=== PATIENT | male | born 1960 | race Caucasian/White ===

== ENCOUNTER 2024-12-28 05:25 | Observation (INO) | payer MEDICARE ==
[~2024-12-28] VITALS: Ht 177.8 cm; Wt 88.9 kg
[2024-12-28] VITALS (13 sets, daily range): BP systolic 94–151; BP diastolic 51–100
[2024-12-28 05:51] LABS: BASOPHILS ABSOLUTE AUTO 0.05 K/mm3 (0.00-0.23); BASOPHILS PERCENT AUTO 0 % (0-2); EOSINOPHILS ABSOLUTE AUTO 0.05 K/mm3 (0.00-0.68); EOSINOPHILS PERCENT AUTO 0 % (0-6); Hematocrit 50.1 % (37.0-53.0); Hemoglobin 16.7 g/dL (13.5-17.5); IMMATURE GRAN ABSOLUTE AUTO 0.03 K/mm3 (0.00-0.10); IMMATURE GRAN PERCENT AUTO 0 % (0-1); LYMPHOCYTES ABSOLUTE AUTO 1.28 K/mm3 (0.84-5.20); LYMPHOCYTES PERCENT AUTO 11 % (21-46); MONOCYTES ABSOLUTE AUTO 1.15 K/mm3 (0.16-1.47); MONOCYTES PERCENT AUTO 10 % (4-13); Mean Corpuscular HGB Conc 33.3 g/dL (31.5-36.5); Mean Corpuscular Volume 87 fL (80-100); NEUTROPHILS ABSOLUTE AUTO 9.53 K/mm3 (1.96-9.15); NEUTROPHILS PERCENT AUTO 79 % (41-73); Platelet Count 158 K/mm3 (150-400); RDW Coefficient Variation 13.6 % (11.7-14.2); RDW Standard Deviation 43.2 fL (35.1-46.3); Red Blood Cell Count 5.75 M/mm3 (4.30-5.90); White Blood Cell Count 12.09 K/mm3 (4.00-11.30)
[2024-12-28 06:16] LABS: Albumin, Blood 4.3 g/dL (3.4-5.0); Albumin/Globulin Ratio 1.3 (0.8-1.8); Bilirubin, Total 0.7 mg/dL (0.1-1.0); Bun/Creatinine Ratio 20.8 (12.0-20.0); Creatinine, Blood 1.06 mg/dL (0.60-1.20); Globulin, Blood 3.4 g/dL (2.2-4.0); Potassium, Blood 4.2 mmol/L (3.5-5.5); Total Protein, Blood 7.7 g/dL (6.4-8.2)
[2024-12-28] MEDS ORDERED: Lidocaine 2% Viscous Soln 15 ML UDC PO ONE (06:35)
[2024-12-28] MEDS ORDERED: Mag Hydrox/AL Hydrox/Simeth 30 ML UDC PO ONE (06:35)
[2024-12-28] MEDS ORDERED: Pantoprazole Sodium 40 MG Injection IV ONE (06:35)
[2024-12-28] MEDS ORDERED: Aspirin 81 MG Chew PO ONE (06:45)
[2024-12-28] MEDS ORDERED: Nitroglycerin 0.4 MG SUBL SL ONE ×2 (06:45→07:15)
[2024-12-28] MEDS ORDERED: Acetaminophen 500 MG Tab PO ONE (07:15)
[2024-12-28] MEDS ORDERED: MONT10T PO (07:34)
[2024-12-28] MEDS ORDERED: PEPCID40 MG PO (07:35)
[2024-12-28] MEDS ORDERED: TADALAFIL20 M1 PO (07:36)
[2024-12-28] MEDS ORDERED: ZYRTEC10 M2 PO (07:36)
[2024-12-28] MEDS ORDERED: MINO10 PO (07:36)
[2024-12-28 08:14] LABS: Anti-Xa UFH, PHA Monitoring <0.10 IU/mL; International Normalized Ratio 0.96; Prothrombin Time Results 10.3 Sec (9.7-11.5)
[2024-12-28] MEDS ORDERED: Heparin Sodium 5000 Units/ML 1ML MDV IV ONE (08:35)
[2024-12-28] MEDS ORDERED: Heparin Sodium,Porcine/0.5 NS 500 ML IV SCH (08:35)
[2024-12-28] MEDS ORDERED: FLU VACC TS2024-25(6MOS UP)/PF 45 MCG/0.5 ML SYRINGE IM SCH (09:25)
[2024-12-28] MEDS ORDERED: Nitroglycerin 0.4 MG SUBL SL PRN (09:35)
[2024-12-28] MEDS ORDERED: Clopidogrel Bisulfate 300 MG Cap PO ONE ×2 (10:00→21:30)
[2024-12-28] MEDS ORDERED: Lisinopril 10 MG Tab PO SCH (10:00)
[2024-12-28] MEDS ORDERED: Metoprolol Tartrate 25 MG Tab PO SCH (10:00)
--- NOTE | 2024-12-28 12:57 | NUR ---
PT ARRIVED IIN THE ROOM FORM ED ABLE TO STAND AND TRANSFER TO PCU BED. ALERT AND ORIENTED X4, NEEDING ASSISTANCE WITH LINES AND TUBINGS WHEN AMBULATING. PT C/O INTERMITTENT CHEST PAIN 5/10 PT DESCRIBED BURNING PAIN ON THE CENTER OF THE CHEST. NITRO SL ONE DOSE WAS GIVEN PT REPORTED EFFECTIVENESS AND PT WAS ABLE TO TAKE A NAP, PAIN LEVEL NOW AT 2-3/10. HEP GTT INFUSING AT 15U/KG/HR. CARDIOLOGY IS CONSULTED TROP WAS ELEVATED, AWAITING FOR DR GARCIA TO SEE PT. PT KEPT NPO AT THIS TIME. PT HAS BEEN CALLING APPROPRIATELY. VITALS HRR SR 70'S, SBP 130-150'S, SATS ABOVE 95% ON RA, AFEBRILE. WILL CONTINUE TO MONITOR
[2024-12-28] MEDS ORDERED: Dose Adjust by Pharmacy XX STA (16:52)
--- NOTE | 2024-12-28 17:45 | NUR ---
PT SUMMARY; NO ACUTE CHANGE SINCE LAST NOTE, PT FOR ANGIO TONIGHT AND KEPT NPO ECHO WAS DONE. PT CONTINUES ON HEP GTT AT 15U/KG/HR. CAME IN TO VISIT ABLE TO DISCUSS PLAN OF CARE WITH SALES AND MARKETING ENGINEER. VITALS REMAINED STABLE AT THIS TIME. WILL REPORT TO ONCOMING SHIFT
[2024-12-28] MEDS ORDERED: Verapamil HCL 2.5 MG/ML 2ML Injection ONE (17:50)
[2024-12-28] MEDS ORDERED: Heparin Sodium 1000 Units/ML 10ML MDV ONE (17:50)
[2024-12-28] MEDS ORDERED: Nitroglycerin 2 MG/20 ML BTL ONE (17:51)
[2024-12-28] MEDS ORDERED: NS 250 ML IV ONE (17:51)
[2024-12-28] MEDS ORDERED: NS 1,000 ML IV ONE ×2 (17:51→18:02)
[2024-12-28] MEDS ORDERED: FentaNYL Citrate 50 MCG/ML 2 ML Injection ONE (18:01)
[2024-12-28] MEDS ORDERED: Midazolam HCl 1MG / ML 2ML Vial ONE (18:02)
[2024-12-28] MEDS ORDERED: DiphenhydrAMINE HCL 25 MG Cap PO PRN (20:45)
[2024-12-28] MEDS ORDERED: Famotidine 20 MG Tab PO SCH (21:00)
--- NOTE | 2024-12-28 22:48 | NUR ---
TR BAND OFF AT 2200. DRESSING CDI. SITE WITHOUT PAIN OR SWELLING. PHARMACY NOTIFIED OF HEPARIN GTT RESTART- NURSE NOTIFY ORDER.
--- NOTE | 2024-12-29 02:26 | NUR ---
SHIFT SUMARY PT CAME BACK FROM [facility]. TR SITE RECOVERED WITHOUT INCIDENT. DRESSING APPLIED. NO COMPLAINTS OF CHEST PAIN/PRESSURE/BURNING OR SHORTNESS OF BREATH. NO PO METOPROLOL GIVEN DUE TO SOFT SYSTLIC PRESSURES AND BRADYCARDIA. PRN BENEDRYL GIVEN FOR SLEEP. PER CK, TREND TROPONINS Q8 UNTIL PEAKED. RESTART HEPARIN 8 HOURS AFTER TR BAND REMOVAL AND RUN FOR ANOTHER 24 HRS ( SEE NURSE NOTIFY ORDER). 300 F PLAVIX ALSO GIVEN.
[2024-12-29 05:36] VITALS: BP 128/71
[2024-12-29 05:48] LABS: Hemoglobin 14.4 g/dL (13.5-17.5); Mean Platelet Volume 10.7 fL (9.1-12.4); Platelet Count 160 K/mm3 (150-400)
--- NOTE | 2024-12-29 06:10 | NUR ---
NOTIFIED PHARMACY OF NURSE NOTIFY HEPAIN RESTART
[2024-12-29] MEDS ORDERED: Clarify Drug Order XX ONE (06:15)
[2024-12-29 07:51] VITALS: BP 91/69
[2024-12-29 08:34] VITALS: BP 98/67
[2024-12-29] MEDS ORDERED: Loratadine 10 MG Tab PO SCH (09:00)
[2024-12-29] MEDS ORDERED: Montelukast Sodium 10 MG Tab PO SCH (09:00)
[2024-12-29] MEDS ORDERED: Clopidogrel Bisulfate 75 MG Tab PO SCH (09:00)
[2024-12-29] MEDS ORDERED: Aspirin 81 MG Chew PO SCH (09:00)
[2024-12-29] MEDS ORDERED: Atorvastatin 40 MG Tab PO SCH (11:03)
[2024-12-29 11:38] VITALS: BP 139/81
[2024-12-29] MEDS ORDERED: Dose Adjust by Pharmacy XX STA (13:02)
[2024-12-29] MEDS ORDERED: METO25ER PO (13:43)
[2024-12-29] MEDS ORDERED: NITROGLYCERIN0.4 M1 SL (13:45)
[2024-12-29] MEDS ORDERED: Lisinopril2.5 MG PO (13:45)
[2024-12-29] MEDS ORDERED: ATORVASTATIN CA80 M1 PO (13:46)
[2024-12-29] MEDS ORDERED: CLOP75 PO (13:46)
[2024-12-29] MEDS ORDERED: ASPI81CH PO (13:47)
--- NOTE | 2024-12-29 15:30 | NUR ---
PT DISCHARGE TO HOME WITH DISCHARGE ORDERS. LAST TROPONIN PEAKED AND TRENDED DOWN TO 6216, DR RAMIREZ MADE AWARE AND CLEARED PT FOR DISCHARGE. MEDICATION CHANGES WERE MADE THIS MORNNG WITH DR RAMIREZ DUE TO PT'S SOFT BP'S. LOWRED DOSE OF METOPROLOL AND LISIOPRIL PT ALSO STARTED ON STATINS. PT DENIES CHEST PAIN FOR THE SHIFT, VITALS HAS BEEN STABLE, PT HAS BEEN AMBULATING INDEPENDENTLY IN THE ROOM. NO OTHER ISSUES REPORTED FOR THE SHIFT. HEP GTT WAS CONINUED UNTIL PT WAS DISCHARGED. DISCLOSED NEW MEDICATIONS AND DISCHARGE INSTRUCTIONS WITH THE PT. PRESCRIPTIONS SENT TO [facility]. ALL BELONGINGS SENT WITH THE PT. P ACCOMPANIED FOR DISCHARGE AMBULATORY.
[2024-12-30] MEDS ORDERED: Metoprolol Succinate 25 MG TABCR PO SCH (07:00)
[2024-12-30] MEDS ORDERED: Lisinopril 5 MG Tab PO SCH (09:00)
== END 2024-12-29 15:01 | disposition home or self-care (01) ==
LOC: ER 05:25 → PCU 05:26
PROVIDERS: Emergency Medicine; Student in an Organized Health Care Education/Training Program; ADMIT Family Medicine
DX: I21.4 Non-ST elevation (NSTEMI) myocardial infarction (principal); I25.10 Atherosclerotic heart disease of native coronary artery without angina pectoris; I35.8 Other nonrheumatic aortic valve disorders; K21.9 Gastro-esophageal reflux disease without esophagitis; I10 Essential (primary) hypertension; E78.5 Hyperlipidemia, unspecified; Z79.899 Other long term (current) drug therapy
CPT/HCPCS: 36415; 71046; 76937; 80053; 83690; 84484; 85014; 85018; 85025; 85049; 85520; 85610; 85730; 93005; 93010; 93306; 93454; 93571; 96365; 96366; 96376; 99152; 99153; 99285-25; A9270; C1769; C1887; C1894; G0378; J1644; J2250; J3010; J7030; J7050; Q9967